=== PATIENT | female | born 1985 | race Caucasian/White ===

== ENCOUNTER 2016-06-08 14:40 | Observation (INO) | payer BC ==
[~2016-06-08] VITALS: Ht 167.6 cm; Wt 83.0 kg
[~2016-06-08 14:40] MED LIST: DIPH25CA84 PO; METH4TAB3 PO; NORE1TAB62; RANI150T7 PO
[2016-06-08 15:00] VITALS: Ht 167.6 cm; Wt 83.0 kg
[2016-06-08 15:11] VITALS: BP 140/95; PULSE 97; RESP 18; TEMP 98; O2SAT 100
[2016-06-08] MEDS ORDERED: BETAMETHASONE 6mg/ml INJECTION IM ONE (15:15)
[2016-06-08] MEDS ORDERED: LIDOCAINE 1% (10mg/ml) 2ml SDV ID PRN (15:15)
[2016-06-08 15:21] VITALS: BP 137/95; PULSE 99
[2016-06-08 15:36] VITALS: BP 128/88; PULSE 101
[2016-06-08 15:51] VITALS: BP 126/87; PULSE 93
[2016-06-08 16:00] LABS: HCT - HEMATOCRIT 31.2 % (36-46); HGB - HEMOGLOBIN 10.2 GM/DL (12-16); MEAN CORPUSCULAR HGB 26.9 UUG (26-34); MEAN CORPUSCULAR HGB CONC(MCHC 32.7 GM/DL (31-37); MEAN CORPUSCULAR VOLUME 82.3 UM3 (80-100); MEAN PLATELET VOLUME 10.6 UM3 (9.4-12.4); RED BLOOD COUNT 3.79 M/MM3 (4.00-5.20); WBC - WHITE BLOOD COUNT 15.4 T/MM3 (4.5-11.0)
[2016-06-08 16:06] VITALS: BP 127/82; PULSE 94
[2016-06-08 16:10] LABS: ALBUMIN 3.1 G/DL (3.5-5.0); ALKALINE PHOSPHATASE 132 U/L (38-126); ALT (SGPT) 17 U/L (9-52); ANION GAP 10 MEQ/L (5-15); AST (SGOT) 17 U/L (14-36); BUN/CREATININE RATIO 22 RATIO (6-26); CALCIUM 8.7 MG/DL (8.4-10.2); CHLORIDE 106 MEQ/L (98-107); CO2 - CARBON DIOXIDE 22 MEQ/L (22-30); CREATININE 0.5 MG/DL (0.7-1.2); GLOMERULAR FILTRATION RATE 144; GLUCOSE 102 MG/DL (65-110); POTASSIUM 3.6 MEQ/L (3.6-5); SODIUM 138 MEQ/L (134-144); TOTAL PROTEIN 6.2 G/DL (6.3-8.2)
[2016-06-08 16:21] VITALS: BP 130/82; PULSE 93
--- NOTE | 2016-06-08 16:40 | DI ---
EXAM: US OB AGE/ GROWTH DATE: 06/08/2016 12:00 AM Encounter: Initial INDICATION: age/growth COMPARISON: None available. TECHNIQUE: Grayscale and color Doppler sonographic images were obtained transabdominally. FINDINGS: There is a single intrauterine gestation is cephalic presentation. There is realtime ultrasound positive cardiac activity with heart rate of 123 bpm. No evidence of placenta previa demonstrated. Amniotic fluid index is 14.4 cm. Biparietal Diameter is 8.47 cm correlating with a gestational age of 34 weeks and 1 days. Head Circumference is 31.30 cm correlating with a gestational age of 35 weeks and 1 days. Abdominal Circumference is 29.65 cm correlating with a gestational age of 33 weeks and 5 days. Femur Length is 6.33 cm correlating with a gestational age of 32 weeks and 6 days. Estimated weight: 2225 grams +/- 325 grams Percentile: 31% Cephalic Index: 0.77 Femur Length/Abdominal Circumference: 21% Head Circumference/Abdominal Circumference: 1.06 The four chamber view of heart, 3 vessel cord, stomach, bladder, kidneys, head, spine, cord insertion, lips/nose, upper extremities, and lower extremities appear within normal limits. EGA by LMP: 34 weeks and 0 days. LMP MP: 07/20/2016 EGA by current US: 34 weeks and 0 days. MP by current US: 07/20/2016 IMPRESSION: Single living intrauterine gestation in cephalic presentation measuring 34 weeks and 0 days by current ultrasound, concordant with dates. .
[2016-06-08 16:53] LABS: BAND NEUTROPHILS # 0.3 T/MM3; EOSINOPHILS # (MANUAL) 0.2 T/MM3 (0-0.5); LYMPHOCYTES # (MANUAL) 4.3 T/MM3 (1-4.8); MONOCYTES # (MANUAL) 0.9 T/MM3 (0-0.8); NEUTROPHILS #(MANUAL)-ABSOLUTE 9.7 T/MM3 (1.8-7.7); TOTAL CELLS COUNTED 100 %
[2016-06-09] MEDS ORDERED: BETAMETHASONE 6mg/ml INJECTION IM ONE (15:15)
== END 2016-06-08 16:50 | disposition home or self-care (01) ==
LOC: MC 14:40
PROVIDERS: ADMIT Obstetrics & Gynecology; ATTEND Obstetrics & Gynecology
DX: O26.893 Other specified pregnancy related conditions, third trimester (principal); R03.0 Elevated blood-pressure reading, without diagnosis of hypertension; O26.23 Pregnancy care for patient with recurrent pregnancy loss, third trimester; O99.343 Other mental disorders complicating pregnancy, third trimester; F32.9 Major depressive disorder, single episode, unspecified; Z3A.34 34 weeks gestation of pregnancy
CPT/HCPCS: 36415; 76815; 80053; 85025; 99218; J0702

== ENCOUNTER 2016-06-21 10:45 | Inpatient (IN) | payer BC ==
[~2016-06-21] VITALS: Ht 167.6 cm; Wt 82.8 kg
[2016-06-21] MEDS ORDERED: ESCI5SOL PO (11:31)
[2016-06-21] MEDS ORDERED: PNV11TAB5 (11:31)
--- NOTE | 2016-06-21 12:40 | DI ---
Indication: ITS.REASON: well being PROCEDURE: US OB BIOPHYS PROFILE W/O NST: Encounter: Initial Age by provided LMP is 35 weeks and 6 days correlating to an MP of July 20, 2016. Comparison: June 08, 2016 PROCEDURE: US OB BIOPHYS PROFILE W/O NST: Technique: Grayscale and color Doppler transabdominal sonographic imaging was performed. Findings: There is a single living intrauterine gestation in cephalic lie. Placenta is posterior without previa. Quantity of amniotic fluid is normal. The cervix is normal length and closed. Amniotic fluid index is normal at 11.9 cm. Largest vertical pocket in the right lower quadrant is 3.8 cm. Umbilical artery Doppler tracing reveals a peak systolic velocity of 55.9 cm/sec, end diastolic velocity of 24.9 cm/sec, resistive index of 0.55, pulsatility index of 0.93, S/D ratio of 2.2, and TAPV of 33.7 cm/sec. heart beats regularly at 132 beats per minute. Biophysical profile score is 6 out of 8 with two points deducted for lack of flexion and extension. Impression: 1. Single living intrauterine gestation with age by provided LMP of 35 weeks and 6 days. This correlates to an MP of July 20, 2016. 2. Biophysical profile score 6 out of 8. .
--- NOTE | 2016-06-21 12:44 | PNPDOC ---
SAFETY SECURITY OFFICER Progress Note Subjective Today's Date 06/21/16 at 35w6d with mild preeclampsia sent over from office for a non-reassuring NST- arrhythmia and frequent short variable decels. She reports good FM today. No BP Sx. Objective General: Alert and Oriented Abdomen: Non-tender, Soft Objective Comments BPP 6/8- no extension, vtx, SONIA 9-12 NST- 140, mod variability, accels, arrhythmia heard, short variable decels to 70s lasting 5-10 sec every 1-5 min (1) 35 weeks gestation of (2) Mild preeclampsia (3) Abnormal heart rate or rhythm Assessment & Plan: Discussed options of daily NSTs vs delivery. Will continue observation for now. COURTNEY MAJANO MD Jun 21, 2016 12:43
--- NOTE | 2016-06-21 16:58 | PNPDOC ---
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 Good FM. Objective Objective Comments The FHT have been unchanged all day with the arrhythmia and decels to 70-80s. (1) 35 weeks gestation of (2) Mild preeclampsia (3) Abnormal heart rate or rhythm Assessment & Plan: Tomorrow is 36 wks. She continues to have the intermittent FHT drops, along with the preeclampsia and BPP 6/8. Due to this change in status today, I'm concerned about the unpredictable risk of IUFD. She had steroids last week. So I'm recommending that we start an induction for her tomorrow. She is in agreement. Q&A. COURTNEY MAJANO MD Jun 21, 2016 16:58
--- OUTSIDE RECORDS SUMMARY | 2016-06-21 17:37 | XMS REPORT | Continuity of Care Document ---
Author Author [facility]RISTOP[facility] Organization [facility] Address Unknown Phone Unavailable Support Name Relationship Address Phone PADMINI HEMALATHA Ortiz MD Caregiver [phone] [place] [address] Unavailable COURTNEY MAJANO MD Caregiver [address] [place] [address] Unavailable COURTNEY MAJANO MD Caregiver [address] [place] [address] Unavailable SHERLY VALADEZ Next Of Kin [address] [place] [address] Insurance Providers Guarantor Zenobia Aaron Address [address] [place] [address] CP Email [email or web address] [facility] Policy Number [id number] Subscriber's Name Mary Aaronian Cadence Relationship 01 Spouse Group Number [id number] Advance Directives Directive Response Recorded Date/Time Ordered Resuscitation Status Full Code 06/08/16 3:09pm Resuscitation Documents on File No 06/08/16 3:00pm DPOA for Healthcare Only No 06/08/16 3:00pm Living Will No 06/08/16 3:00pm Problems Active Problems Medical Problem Onset Date Status Allergic reaction Unknown Acute Allergic reaction Unknown Acute Medications Current Home Medications Medication Dose Units Route Directions Days Qty Instructions Start Date Diphenhydramine Hcl (Benadryl) 25 Mg Capsule 1 Cap Oral Every 4-6 Hours for Allery Symptoms 20 Capsule 02/26/14 Methylprednisolone (Medrol) 4 Mg Tab.ds.pk 4 Mg Oral As Directed for Allery Symptoms 1 02/26/14 Norethindrone Ac-Eth Estradiol (Microgestin 21 1-20 Tablet) 1 Each Tablet Daily 02/26/14 Ranitidine Hcl 150 Mg Tablet 150 Mg Oral Twice A Day for Allery Symptoms 5 Days Take 1 tablet, by mouth, 2 times a day. 02/26/14 Social History Social History Problem Response Recorded Date/Time Onset Date Status Reason for Hospitalization with increased blood pressure 2016 4:45pm Not Applicable Not Applicable Hx Substance Use No 02/26/2014 2:10am Not Applicable Not Applicable Hx Alcohol Use No 02/26/2014 2:10am Not Applicable Not Applicable Tobacco Usage none 02/26/2014 2:58am Not Applicable Not Applicable Query Response Start Date Stop Date Smoking Status Never smoker Hospital Discharge Instructions Instructions: Care Instructions: I was in the hospital because (patient own words): high blood pressure Discharge Diet: Regular Discharge Activity: decreased activity Follow Up Appointments: 06/09/2016 @ 3:15pm for Betamethasone Pending Lab / Results: Follow up w/ provider Expected Signs/Symptoms: see discharge instructions Notify Physician If: see discharge instructions During Business Hours:: Please call the physician's office at After Business Hours:: Please call [phone] and have the telephone switchboard operator page the physician. Pain Management/Treatment: see discharge instructions Wound/Incision Care: N/A Condition at time of discharge: Good Plan of Care Discharge Date 06/08/16 4:50pm Disposition 01 DISCHARGED HOME, SELF-CARE Instructions/Education Provided [facility] Prescriptions See Medication Section Care Plan and Goals See Discharge Instructions Section Functional Status Query Response Date Recorded Ability to complete ADL's impeded by No change June 08, 2016 3:00pm Allergies, Adverse Reactions, Alerts Allergen Type Severity Reaction Status Last Updated No Known Drug Allergies Allergy Unknown Active 11/08/08 Immunizations Query Response on File Recorded Date/Time Hx Influenza Vaccination Y 10/201506/08/16 3:00pm Hx Pneumococcal Vaccination No 06/08/16 3:00pm Hx Influenza Vaccination Y 10/201506/08/16 3:00pm Vital Signs Acute Vital Signs Vital Response Date/Time Temperature (Fahrenheit) 98.0 deg F (96.8 - 99.1) 06/08/2016 3:11pm Temperature (Calculated Celsius) 36.42026 degrees C (36.0 - 37.3) 06/08/2016 3:11pm Pulse Rate (adult) 93 bpm (60 - 100) 06/08/2016 4:21pm Respiratory Rate 18 breaths/min (10 - 20) 06/08/2016 3:11pm O2 Sat by Pulse Oximetry 100 % (90 - 100) 06/08/2016 3:11pm Oxygen Delivery Method Room Air 06/08/2016 3:11pm Blood Pressure 130/82 mm Hg 06/08/2016 4:21pm Blood Pressure Source Automatic Cuff 06/08/2016 4:21pm Height (Feet) 5 feet 06/08/2016 3:00pm Height (Inches) 6.00 inches 06/08/2016 3:00pm Weight (Kilograms) 83.000 kg 06/08/2016 3:00pm Body Mass Index (BMI) 29.5 06/08/2016 3:00pm Results Laboratory Results Test Name Result Units Flags Reference Collection Date/Time Result Date/ Time Comments White Blood Count 15.4 T/MM3 H 4.5-11.0 06/08/2016 3:45pm 06/08/2016 4: 01pm Red Blood Count 3.79 M/MM3 L 4.00-5.20 06/08/2016 3:45pm 06/08/2016 4: 01pm Hemoglobin 10.2 GM/DL L 12-16 06/08/2016 3:45pm 06/08/2016 4:01pm Hematocrit 31.2 % L 36-46 06/08/2016 3:45pm 06/08/2016 4:01pm Mean Corpuscular Volume 82.3 UM3 80-100 06/08/2016 3:45pm 06/08/2016 4: 01pm Mean Corpuscular Hemoglobin 26.9 UUG 26-34 06/08/2016 3:45pm 2016 4:01pm Mean Corpuscular Hemoglobin Concent 32.7 GM/DL 31-37 06/08/2016 3:45pm 06/08/2016 4:01pm RDW Standard Deviation 40.1 FL 36.9-50.2 06/08/2016 3:45pm 06/08/2016 4 :01pm Platelet Count 399 T/MM3 130-400 06/08/2016 3:45pm 06/08/2016 4:01pm Mean Platelet Volume 10.6 UM3 9.4-12.4 06/08/2016 3:45pm 06/08/2016 4: 01pm Neutrophils % (Manual) 63.0 % 33-66 06/08/2016 3:45pm 06/08/2016 4: 53pm Band Neutrophils % 2.0 % 0-6 06/08/2016 3:45pm 06/08/2016 4:53pm Lymphocytes % (Manual) 28.0 % 23-45 06/08/2016 3:45pm 06/08/2016 4: 53pm Monocytes % (Manual) 6.0 % 0-9.0 06/08/2016 3:45pm 06/08/2016 4:53pm Eosinophils % (Manual) 1.0 % 0-4 06/08/2016 3:45pm 06/08/2016 4:53pm Band Neutrophils # 0.3 T/MM3 06/08/2016 3:45pm 06/08/2016 4:53pm Absolute Neutrophils (Manual) 9.7 T/MM3 H 1.8-7.7 06/08/2016 3:45pm 01/2017 4:53pm Lymphocytes # (Manual) 4.3 T/MM3 1-4.8 06/08/2016 3:45pm 06/08/2016 4: 53pm Monocytes # (Manual) 0.9 T/MM3 H 0-0.8 06/08/2016 3:45pm 06/08/2016 4: 53pm Eosinophils # (Manual) 0.2 T/MM3 0-0.5 06/08/2016 3:45pm 06/08/2016 4: 53pm Red Cell Morphology Comment NORMAL 06/08/2016 3:45pm 06/08/2016 4: 53pm Icterus Index < 2 0-7 06/08/2016 3:pm 06/08/2016 4:10pm Chemistry Specimen Hemolysis < 15 0-25 06/08/2016 3:pm 06/08/2016 4 :10pm 0-25: Specimen Exhibited No Hemolysis. Turbidity < 20 0-20 06/08/2016 3:pm 06/08/2016 4:10pm Sodium Level 138 MEQ/L 134-144 06/08/2016 3:45pm 06/08/2016 4:10pm Potassium Level 3.6 MEQ/L 3.6-5 06/08/2016 3:45pm 06/08/2016 4:10pm Chloride Level 106 MEQ/L 98-107 06/08/2016 3:45pm 06/08/2016 4:10pm Carbon Dioxide Level 22 MEQ/L 22-30 06/08/2016 3:45pm 06/08/2016 4: 10pm Anion Gap 10 MEQ/L 5-15 06/08/2016 3:45pm 06/08/2016 4:10pm Blood Urea Nitrogen 11.0 MG/DL 7-17 06/08/2016 3:45pm 06/08/2016 4: 10pm Creatinine 0.5 MG/DL L 0.7-1.2 06/08/2016 3:45pm 06/08/2016 4:10pm BUN/Creatinine Ratio 22 RATIO 6-26 06/08/2016 3:45pm 06/08/2016 4:10pm Glomerular Filtration Rate Calc 144 06/08/2016 3:45pm 06/08/2016 4: 10pm Glucose Level 102 MG/DL 65-110 06/08/2016 3:45pm 06/08/2016 4:10pm Calculated Osmolality 265 MOSM/KG 261-280 06/08/2016 3:45pm 06/08/2016 4:10pm Calcium Level 8.7 MG/DL 8.4-10.2 06/08/2016 3:45pm 06/08/2016 4:10pm Total Bilirubin 0.50 MG/DL 0.20-1.30 06/08/2016 3:pm 06/08/2016 4: 10pm Alkaline Phosphatase 132 U/L H 38-126 06/08/2016 3:45pm 06/08/2016 4: 10pm Total Protein 6.2 G/DL L 6.3-8.2 06/08/2016 3:45pm 06/08/2016 4:10pm Albumin 3.1 G/DL L 3.5-5.0 06/08/2016 3:45pm 06/08/2016 4:10pm Globulin 3.1 G/DL 2.4-3.6 06/08/2016 3:pm 06/08/2016 4:10pm Albumin/Globulin Ratio 1.0 RATIO L 1.1-2.2 06/08/2016 3:45pm 06/08/2016 4:10pm Aspartate Amino Transf (AST/SGOT) 17 U/L 14-36 06/08/2016 3:45pm 2016 4:10pm Alanine Aminotransferase (ALT/SGPT) 17 U/L 9-52 06/08/2016 3:45pm 06/08 4:10pm Name: ZENOBIA AARON Cadence Unit #: [id number] : [id number] Sex: F Admit Date: 06/08/16 Loc / Svc: Discharge Date: DIAGNOSTIC IMAGING REPORT Report #: [id number] [facility] GENIA Lock EXAM: US OB AGE/ GROWTH DATE: 06/08/2016 12:00 AM Encounter: Initial INDICATION: age/growth COMPARISON: None available. TECHNIQUE: Grayscale and color Doppler sonographic images were obtained transabdominally. FINDINGS: There is a single intrauterine gestation is cephalic presentation. There is realtime ultrasound positive cardiac activity with heart rate of 123 bpm. No evidence of placenta previa demonstrated. Amniotic fluid index is 14.4 cm. Biparietal Diameter is 8.47 cm correlating with a gestational age of 34 weeks and 1 days. Head Circumference is 31.30 cm correlating with a gestational age of 35 weeks and 1 days. Abdominal Circumference is 29.65 cm correlating with a gestational age of 33 weeks and 5 days. Femur Length is 6.33 cm correlating with a gestational age of 32 weeks and 6 days. Estimated weight: 2225 grams +/- 325 grams Percentile: 31% Cephalic Index: 0.77 Femur Length/Abdominal Circumference: 21% Head Circumference/Abdominal Circumference: 1.06 The four chamber view of heart, 3 vessel cord, stomach, bladder, kidneys, head, spine, cord insertion, lips/nose, upper extremities, and lower extremities appear within normal limits. EGA by LMP: 34 weeks and 0 days. LMP MP: 07/20/2016 EGA by current US: 34 weeks and 0 days. MP by current US: 07/20/2016 IMPRESSION: Single living intrauterine gestation in cephalic presentation measuring 34 weeks and 0 days by current ultrasound, concordant with dates. . Procedures No known history of procedures. Encounters Encounter Location Arrival/Admit Date Discharge/Depart Date Attending Provider Discharged Inpatient (obs) [facility] 06/08/16 2:40pm 06/08/16 4: 50pm COURTNEY MAJANO MD
[2016-06-21] MEDS ORDERED: ACETAMINOPHEN 500 MG TABLET PO PRN (18:00)
[2016-06-21] MEDS ORDERED: MAG-AL + SIM LIQUID 30 ML UDC PO PRN (18:00)
[2016-06-21] MEDS ORDERED: CALCIUM CARBONATE 500mg Chewable TAB PO PRN (18:00)
[2016-06-21] MEDS ORDERED: LIDOCAINE 1% (10mg/ml) 2ml SDV ID PRN (18:00)
[2016-06-21 18:05] LABS: HCT - HEMATOCRIT 36.2 % (36-46); HGB - HEMOGLOBIN 11.6 GM/DL (12-16); MEAN CORPUSCULAR HGB 26.4 UUG (26-34); MEAN CORPUSCULAR VOLUME 82.3 UM3 (80-100); WBC - WHITE BLOOD COUNT 19.7 T/MM3 (4.5-11.0)
[2016-06-21 18:14] LABS: ALBUMIN 3.7 G/DL (3.5-5.0); ALKALINE PHOSPHATASE 168 U/L (38-126); ALT (SGPT) 23 U/L (9-52); ANION GAP 11 MEQ/L (5-15); AST (SGOT) 21 U/L (14-36); BUN/CREATININE RATIO 32 RATIO (6-26); CALCIUM 9.4 MG/DL (8.4-10.2); CHLORIDE 105 MEQ/L (98-107); CO2 - CARBON DIOXIDE 24 MEQ/L (22-30); CREATININE 0.5 MG/DL (0.7-1.2); GLOMERULAR FILTRATION RATE 144; GLUCOSE 79 MG/DL (65-110); POTASSIUM 3.8 MEQ/L (3.6-5); SODIUM 140 MEQ/L (134-144); TOTAL PROTEIN 7.3 G/DL (6.3-8.2)
[2016-06-21 18:27] VITALS: BP 126/82; PULSE 101; RESP 16; TEMP 98.1; O2SAT 98
[2016-06-22] MEDS: LR 1,000 ML IV PRN ×3 (05:59→15:09)
[2016-06-22] MEDS ORDERED: OXYTOCIN 30 UNIT in D5LR 500 ML SCH (06:00)
[2016-06-22] MEDS ORDERED: D5LR 1,000 ML IV SCH ×2 (06:00→16:35)
[2016-06-22 08:54] LABS: BASOPHILS # (MANUAL) 0.2 T/MM3 (0-0.2); LYMPHOCYTES # (MANUAL) 4.1 T/MM3 (1-4.8); MONOCYTES # (MANUAL) 1.8 T/MM3 (0-0.8); NEUTROPHILS #(MANUAL)-ABSOLUTE 13.6 T/MM3 (1.8-7.7); TOTAL CELLS COUNTED 100 %
[2016-06-22 08:55] LABS: BURR CELLS 1+; HOWELL-JOLLY BODIES 1+; POIKILOCYTOSIS 1+
--- NOTE | 2016-06-22 10:51 | ANESPREOP ---
Anesthesia Record Date and Time DATE: 06/22/16 TIME: 10:50 Proposed Surgical Procedure Allergies: Coded Allergies: amoxicillin (Verified Allergy, Severe, throat and eyes swell, 06/21/16) Ht/Wt/BMI Height: 5 ' 6.00 " Weight: 82.800 kg BMI: kg/m2 Vital Signs Date Time Temp Pulse Resp B/P Pulse Ox O2 Delivery O2 Flow Rate FiO2 06/21/16 18:27 98.1 101 16 126/82 98 Room Air Medications Inpatient Medications Current Medications Medications (Trade) Dose Ordered Sig/Karen Start Time Stop Time Status Last Admin Dose Admin Lidocaine HCl 0.2 mg 0.2 mg PRN PRN 06/21/16 18:00 Lactated Ringer's (Lactated Ringers) 1,000 ml @ 0 mls/hr Q0M PRN 06/21/16 17:50 06/22/16 05:59 0 MLS/HR Acetaminophen (Tylenol Extra Strength) 1-2 TABS = 500-1,000 MG Q4H PRN 06/21/16 18:00 Al Hydroxide/Mg Hydroxide (Maalox) 30 ml Q4H PRN 06/21/16 18:00 Calcium Carbonate 1-2 TABS Q2H PRN 06/21/16 18:00 Dextrose/Lactated Ringer's 1,000 ml @ 0 mls/hr Q0M 06/22/16 06:00 06/22/16 06:19 0 MLS/HR Oxytocin/Dextrose/ Lactated Ringer's (Pitocin/D5lr) 503 ml @ 0 mls/hr Q0M 06/22/16 06:00 06/22/16 06:00 0 MLS/HR Diphenhydramine HCl (Benadryl) 25 Mg Capsule, 1 CAP PO Q4-6H Last Taken: on Unknown Date & Time Escitalopram Oxalate (Lexapro) 10 Mg/10 Ml Solution, 10 ML PO DAILY, (Reported) Last Taken: on 06/21/16 0630 Methylprednisolone (Medrol) 4 Mg Tab.ds.pk, 4 MG PO DIRECTED Last Taken: on Unknown Date & Time Norethindrone AC-Eth Estradiol ( Microgestin 21 1-20 Tablet) 1 Each Tablet, DAILY, (Reported) Last Taken: on Unknown Date & Time Ynb709/FA/Omega3/Dha/Fish Oil ( Gummies) 1 Each Tab.chew, (Reported) Last Taken: on 06/21/16 0630 Ranitidine HCl (Ranitidine HCl) 150 Mg Tablet, 150 MG PO BID Take 1 tablet, by mouth, 2 times a day. Last Taken: on Unknown Date & Time Currently on Beta Deborah: No Medical/Surgical History Anesthesia PMH: Reports: *Hypertension (gestational) Smoking Status: Never smoker Past Surgical History Orthopedic Surgeries: No Abdominal Surgeries: No Genitourinary Surgeries: No Cardiac Surgeries: No Endocrine Surgeries: No Reproductive Surgeries: No Neurological Surgeries: No Ear Surgeries: No Nose Surgeries: No Throat Surgeries: No Other Surgeries: No Anesthesia Adverse Reactions: FOUND none Family Hx of Anesthesia Advers: none Pertinent Findings Laboratory Tests 06/21/16 17:41 EKG Rhythm: Sinus Rhythm Physical Exam Respiratory: Bilat breath sounds equal, Lungs clear Cardiovascular: FOUND Regular rate, rhythm ASA: 2 Plan Anesthesia Plan: Other (LED) Discussion Discussed risks/options/alternatives of anesthesia and questions answered. Patient consents. Nursing pain assessment noted. Attestation Statement Prior to the delivery of any anesthetic medication, I examined the patient, developed the plan, obtained the patient's consent and discussed the risk and benefits of the procedure with the patient/guardian. ANA MARÍA HILL Jun 22, 2016 10:51
--- NOTE | 2016-06-22 13:29 | ANESOB ---
Epidural/ Date/Time DATE: 06/22/16 TIME: 13:28 Preop Diagnosis Procedure: Labor Epidural Plan: Epidural Height: 5 ' 6.00 " Weight: 82.800 kg BMI: kg/m2 P:2 Heart Rate: 130's Medications & Allergies Inpatient Medications Current Medications Medications (Trade) Dose Ordered Sig/Karen Start Time Stop Time Status Last Admin Dose Admin Lidocaine HCl 0.2 mg 0.2 mg PRN PRN 06/21/16 18:00 Lactated Ringer's (Lactated Ringers) 1,000 ml @ 0 mls/hr Q0M PRN 06/21/16 17:50 06/22/16 13:04 0 MLS/HR Acetaminophen (Tylenol Extra Strength) 1-2 TABS = 500-1,000 MG Q4H PRN 06/21/16 18:00 Al Hydroxide/Mg Hydroxide (Maalox) 30 ml Q4H PRN 06/21/16 18:00 Calcium Carbonate 1-2 TABS Q2H PRN 06/21/16 18:00 Dextrose/Lactated Ringer's 1,000 ml @ 0 mls/hr Q0M 06/22/16 06:00 06/22/16 06:19 0 MLS/HR Oxytocin/Dextrose/ Lactated Ringer's (Pitocin/D5lr) 503 ml @ 0 mls/hr Q0M 06/22/16 06:00 06/22/16 06:00 0 MLS/HR Diphenhydramine HCl (Benadryl) 25 Mg Capsule, 1 CAP PO Q4-6H Last Taken: on Unknown Date & Time Escitalopram Oxalate (Lexapro) 10 Mg/10 Ml Solution, 10 ML PO DAILY, (Reported) Last Taken: on 06/21/16629 Methylprednisolone (Medrol) 4 Mg Tab.ds.pk, 4 MG PO DIRECTED Last Taken: on Unknown Date & Time Norethindrone AC-Eth Estradiol ( Microgestin 21 1-20 Tablet) 1 Each Tablet, DAILY, (Reported) Last Taken: on Unknown Date & Time Jcv999/FA/Omega3/Dha/Fish Oil ( Gummies) 1 Each Tab.chew, (Reported) Last Taken: on 06/21/16629 Ranitidine HCl (Ranitidine HCl) 150 Mg Tablet, 150 MG PO BID Take 1 tablet, by mouth, 2 times a day. Last Taken: on Unknown Date & Time Coded Allergies: amoxicillin (Verified Allergy, Severe, throat and eyes swell, 06/21/16) Medical/Surgical History Anesthesia PMH: Reports: *Hypertension (gestational), Smoking Status: Never smoker Does patient use chewing tobac: No Second Hand Exposure: No Substance Use Type: does not use Alcohol Intake: none Anesthesia Adverse Reactions: FOUND none Family Hx of Anesthesia Advers: none Hx of Motion Sickness: No Complications During : No Pertinent Findings Laboratory Tests 06/21/16 17:41 EKG Rhythm: Sinus Rhythm Physical Exam Respiratory: Lungs clear Cardiovascular: Regular rate, rhythm Airway Assessment Mallampati Score: II TMD: 3 Fingerbreadths Neck Extension: Good Overall Assessment: May Be Diff Intubation ASA: 2 Discussion Discussed risks/options/alternatives of anesthesia. Patient consents. Nursing pain assessment noted. Present for Discussion: Present: Spouse Attestation Statement Prior to the delivery of any anesthetic medication, I examined the patient, developed the plan, obtained the patient's consent and discussed the risk and benefits of the procedure with the patient/guardian. If the note happens to be signed after anesthesia start time, it is only due to providing efficient care of the patient and documenting at a time when the computer is available. ИВАН ESPINOSA MANAGER [employer] Jun 22, 2016 13:29
[2016-06-22] MEDS ORDERED: DiphenhydrAMINE 50 MG/ML INJECTION IV PRN ×2 (13:30→17:00)
[2016-06-22] MEDS ORDERED: NALOXONE 0.4mg/ml INJECTION IV PRN ×2 (13:30→17:00)
[2016-06-22] MEDS ORDERED: ROPIVACAINE 1% 200 MG, SUFENTANIL 50 MCG in NORMAL SALINE 80 ML EPI PRN (13:30)
[2016-06-22] MEDS ORDERED: ONDANSETRON 4mg/2ml INJECTION IV PRN ×2 (13:30→17:00)
[2016-06-22] MEDS ORDERED: LIDOCAINE 2%/EPI 1:200,000 20ml SDV ONE (15:38)
[2016-06-22] MEDS ORDERED: LIDOCAINE JELLY 2% 30ml TUBE ONE (15:39)
[2016-06-22] MEDS ORDERED: NOZIN NASAL SWAB NS ONE (15:40)
[2016-06-22] MEDS ORDERED: FAMOTIDINE 20mg IVPB 50 ML IV ONE (15:40)
[2016-06-22] MEDS ORDERED: CEFAZOLIN 2 GM in D5W 50ml 2 GM in D5W 50 ML IV ONE ×2 (15:45)
[2016-06-22] MEDS ORDERED: CITRIC ACID/SODIUM CITRATE 30 ML PO ONE (15:45)
[2016-06-22] MEDS ORDERED: MORPHINE SULFATE PF 5mg/10ml VL (DURAMORPH) ONE (16:06)
[2016-06-22] MEDS ORDERED: ONDANSETRON 4mg/2ml INJECTION ONE (16:09)
[2016-06-22] MEDS ORDERED: OXYTOCIN 30 UNIT in D5LR 500 ML IV SCH (16:35)
[2016-06-22] MEDS ORDERED: MILK OF MAGNESIA 30 ML SUSP PO PRN (16:45)
[2016-06-22] MEDS ORDERED: DiphenhydrAMINE 25 MG CAPSULE PO PRN (16:45)
[2016-06-22] MEDS ORDERED: HYDROCORTISONE 2.5% CREAM 30 GM RECTALLY PRN (16:45)
--- NOTE | 2016-06-22 16:53 | DI ---
Indication: ITS.REASON: STAT C/S PROCEDURE: KUB: Encounter: Initial Comparison: None Findings: Epidural catheter is noted terminating at the L3 level. No retained radiopaque surgical instruments or sponges identified. Nonobstructive nonspecific bowel gas pattern. Bony structures are grossly unremarkable. Impression: No retained radiopaque surgical instruments or sponges seen. .
[2016-06-22] MEDS ORDERED: NALBUPHINE 10mg/ml INJECTION IV PRN (17:00)
--- NOTE | 2016-06-22 17:01 | ANESPO ---
Post-Op Note Date 06/22/16 Time: 17:00 Status Pt Participated in Evaluation: Pt participated in person Vital Signs Date Time Temp Pulse Resp B/P Pulse Ox O2 Delivery O2 Flow Rate FiO2 06/21/16 18:27 98.1 101 16 126/82 98 Room Air Respiratory Function: Airway patent, Regular respirations Cardiovascular Function: Regular pulse Telemetry Pattern: 0 Mental Status: Alert/oriented Pain Level Intensity: 0 Hydration: IV infusing Complications during Recovery None apparent Follow-Up Instructions Instructions Per Surgeon SAM OWEN CRNA Jun 22, 2016 17:01
[2016-06-22] MEDS: SIMETHICONE 80 MG CHEWABLE TABLET PO CHEW SCH ×2 (18:30→22:00)
[2016-06-22] MEDS: IBUPROFEN 800 MG TABLET PO PRN (18:34)
[2016-06-22 21:05] LABS: HCT - HEMATOCRIT 29.4 % (36-46); HGB - HEMOGLOBIN 9.5 GM/DL (12-16); MEAN CORPUSCULAR HGB 26.5 UUG (26-34); MEAN CORPUSCULAR HGB CONC(MCHC 32.3 GM/DL (31-37); MEAN CORPUSCULAR VOLUME 81.9 UM3 (80-100); RED BLOOD COUNT 3.59 M/MM3 (4.00-5.20); WBC - WHITE BLOOD COUNT 21.5 T/MM3 (4.5-11.0)
[2016-06-22 22:00] VITALS: BP 136/80; PULSE 89; RESP 20; TEMP 97.7; O2SAT 99
[2016-06-23] VITALS (13 sets, daily range): BP systolic 130–142; BP diastolic 69–96; PULSE 85–98; RESP 16–20; TEMP 97.3–98.6; O2SAT 97–100
[2016-06-23] MEDS: IBUPROFEN 800 MG TABLET PO PRN ×3 (01:54→19:22)
--- NOTE | 2016-06-23 02:16 | NUR ---
Shift summary: Pt. had section at 1556 due to FHT. Viable male delivered and sent to special care. Pt vital signs are stable. During recovery period, O2 saturation would intermittently drop to upper 80's/ low 90's while pt. was sleeping. 2L O2 via nasal cannula applied to pt. per standing anesthesia orders to keep O2 > 90%. O2 removed after recovery period. Pt. has now maintained O2 saturation in the upper 90's-100 percent while sleeping. D5LR continues to infuse at 100 ml/hr. Jacques catheter patent and draining with adequate output. Pt. had intermittent nausea/vomiting throughout the recovery period and has had water and crackers this shift. Zofran 4 mg given at 2225. Pain controlled with Ibuprofen 800 mg. This RN offered [place], but pt. refused medication. Fundus is firm, midline with small bleeding. Incision dressing is dry and intact. Bilateral thigh-high SCD's and pulse oximeter on. Pericare provided by this RN at 2200. Pt. dangled and stood at bedside to be transferred to wheelchair to see baby in SCN. Pt. is exhausted and has slept most of the evening/night. supportive. Hgb dropped from 11.[address] Vizcaino was notified, no new orders.
--- NOTE | 2016-06-23 02:50 | NUR ---
Chart Check 24 hour chart check completed
--- NOTE | 2016-06-23 07:11 | OPNOTEF ---
DATE 06/22/2016 PREOPERATIVE DIAGNOSES 1. 30-year-old, 5, para 2, at 36 weeks gestational age. 2. distress. 3. Mild preeclampsia. POSTOPERATIVE DIAGNOSES 1. 30-year-old, 5, para 2, at 36 weeks gestational age. 2. distress. 3. Mild preeclampsia. PROCEDURE Primary low transverse section. SURGEON Dr. Sadie Red LICENSING ANALYST Jose Valladares, Informatics Analyst ANESTHESIA Epidural by Ifeanyi Wakefield CRNA COMPLICATIONS None. EBL 900 ml FINDINGS Viable male infant, cephalic position, clear fluids, Apgars 5/7, weight 2178 g, name "Manas." The baby came out clenching his umbilical cord in his fist. Normal-appearing uterus and adnexa. INDICATIONS Josie came to the office yesterday for a blood pressure check and NST due to mild preeclampsia. A new audible arrhythmia was heard as well as recurrent drops in heart rate down to the 70s for 10-20 seconds every 1-5 minutes. She was sent to [facility] for extended monitoring and had a biophysical profile. This was only 6/8. She continued to have the drop in heart rate throughout the entire day, so I was not comfortable sending her home. Due to the abnormal heart tones and abnormal biophysical profile, the decision was made to start Pitocin induction this morning. She is GBS negative. Her membranes were ruptured artificially returning clear fluids. She received an epidural. She progressed very slowly throughout labor and only dilated to 3 cm and -2 station. She started having recurrent severe variable decelerations. Due to being remote from vaginal delivery with distress, she was consented for a section. DESCRIPTION OF PROCEDURE The patient was taken back to the operating room where her epidural was brought up to adequate surgical levels. She already had a Jacques catheter in place. She was prepared and draped in the normal sterile fashion. A Pfannenstiel skin incision was made 2 cm above the symphysis pubis and carried down to the fascia. The fascia was incised in the midline and extended laterally with the Lo scissors. The fascia was elevated and the underlying rectus muscles were dissected off. The peritoneum was entered bluntly and was extended superiorly and inferiorly with good visualization of the bladder. The bladder blade was inserted. A bladder flap was created. The lower uterine segment was very thin from labor. The lower uterine segment was incised in a transverse fashion layer by layer with the scalpel and bluntly extended. The 's head was delivered atraumatically. The nose and mouth were suctioned. The rest of the body was delivered and the baby was found to be clutching his umbilical cord. The cord was clamped and cut. The infant was handed to Dr. Roe who was asked to attend due to distress. The placenta delivered spontaneously. The uterus was exteriorized and cleared of all clots and debris. The uterine incision was closed with running locked O Monocryl. A [id number] of 2-0 chromic was placed on the left edge of the incision for hemostasis. The uterus was returned to the abdomen. The gutters were cleared of all clots and debris. The uterine incision was inspected one final time and still noted to be hemostatic. The peritoneum was closed with running 2-0 Vicryl. Hemostasis was obtained in the rectus muscles with the cautery. The fascia was closed with running 0 Vicryl. Hemostasis was obtained in the subcutaneous tissue with the cautery. The skin was closed with 4-0 Vicryl in a subcuticular manner. Steri-Strips were placed. Sponge, sharp and instrument counts were obtained. However, a postoperative x-ray was done since instruments were not counted preoperatively. At this time baby is in special care nursery due to respiratory distress. TAYO
--- NOTE | 2016-06-23 08:08 | PNPDOC ---
Progress Note PPD1 Rubella: Immune GBS: Negative Blood Type:A pos Subjective 06/23/16 Lochia: Moderate Pain: Controlled Voiding: Voiding, Not Voiding (cobb removed, but unable to void first time to BR.) Nausea and Vomiting: No Nausea/Vomiting Objective Vital Signs Date Time Temp Pulse Resp B/P Pulse Ox O2 Delivery O2 Flow Rate FiO2 06/23/16 08:02 98.1 92 18 142/93 100 Room Air Urine Output: Good General: Alert and Oriented Abdomen: Fundus Firm Incision: Clean/Dry/Intact Laboratory Item Value Date Time White Blood Count 21.5 T/MM3 H 06/22/162048 Hemoglobin 9.5 GM/DL L # 06/22/162048 Platelet Count 331 T/MM3 06/22/162048 Assessment Primary C/S (1) Status post primary low transverse section Plan: Routine Care (2) Mild preeclampsia Plan: Routine Care Plan Routine Care PACO ESPARZA APRN Jun 23, 2016 08:08
[2016-06-23] MEDS: DOCUSATE CALCIUM 240 MG CAPSULE PO SCH (08:23)
[2016-06-23] MEDS: IRON POLYSACCHARIDES COMPLEX 150 MG CAPSULE PO SCH (08:23)
[2016-06-23] MEDS: SIMETHICONE 80 MG CHEWABLE TABLET PO CHEW SCH ×4 (08:24→22:25)
--- NOTE | 2016-06-23 10:30 | NUR ---
CM THIS WORKER MET WITH PT AND FOB AT THIS TIME. THIS WORKER INTRODUCED SELF AND ROLE OF CASE MANAGEMENT. PARENTS REPORTED THAT THEY HAD ALL NECESSARY ITEMS FOR BABY. FAMILY SUPPORT AVAILABLE IN [place]. PARENTS DENIED NEEDS. PARENTS ARE WORKING ON OBTAINING A SMALLER CAR SEAT. PARENTS REPORTED THAT THEY WOULD BE ABLE TO OBTAIN THIS FINANCIALLY. PARENTS DENIED NEEDS AT THIS TIME. PARENTS HAVE FAMILY THAT ARE HELPING WITH THE OTHER CHILDREN WHILE THEY ARE HOSPITALIZED. THIS WORKER PROVIDED CONTACT INFORMATION FOR THIS WORKER AND ENCOURAGED PARENTS TO CONTACT THIS WORKER WITH ANY NEEDS. PT WILL PLAN TO USE [employer] FOR CLAIMS ADJUDICATOR AND DR. HILL FOR FOLLOW UP. NO CONCERNS AT THIS TIME.
[2016-06-23] MEDS: HYDROCODONE/APAP 5 mg/325 mg TABLET PO PRN ×3 (13:54→21:32)
--- NOTE | 2016-06-23 15:00 | NUR ---
Shift summary Patient is getting up and about caring for self and going to [facility] to see baby. IV fluids, Jacques and SCDs have been discontinued. Initially was unable to void but is now voiding without difficult. Is using her own breast pump and pumping q 3 hours during the day. Patient was reluctant to take narcotics because of a history of it causing nausea. Took Ibuprofen and acetaminophin most of the day. This afternoon requested one [place] for increased pain. She tolerated this without nausea and now is requesting a second [place].
[2016-06-24 00:15] VITALS: BP 153/85; PULSE 95; RESP 16; TEMP 98.7; O2SAT 99
--- NOTE | 2016-06-24 01:30 | NUR ---
Chart Check 24 hour chart check completed
--- NOTE | 2016-06-24 01:30 | NUR ---
Shift summary Pt doing well post op c/s. VSS, eating and drinking well. Requesting Ibuprofen and [place] for discomfort, reporting relief with 2 [place] at a time, [facility] to [facility] several times during shift. Voiding without difficulty, reports minimal vaginal bleeding, denies clots. Pt given abdominal binder for support. Will continue to monitor per POC.
[2016-06-24 04:30] VITALS: BP 122/69; PULSE 93; RESP 14; TEMP 98.9; O2SAT 95
[2016-06-24] MEDS: HYDROCODONE/APAP 5 mg/325 mg TABLET PO PRN ×4 (07:02→23:08)
[2016-06-24] MEDS: IBUPROFEN 800 MG TABLET PO PRN ×3 (07:02→23:08)
--- NOTE | 2016-06-24 08:06 | PNPDOC ---
Progress Note PPD2 Rubella: Immune GBS: Negative Blood Type:A pos Subjective 06/24/16 Lochia: Minimal Pain: Controlled Voiding: Voiding Patient in SCN [id number] with baby. Objective Vital Signs Date Time Temp Pulse Resp B/P Pulse Ox O2 Delivery O2 Flow Rate FiO2 06/24/16 04:30 98.9 93 14 122/69 95 Room Air Urine Output: Good General: Alert and Oriented Incision: Clean/Dry/Intact, No Erythema Extremities: Non-tender Assessment (1) Status post primary low transverse section Plan: Routine Care (2) Mild preeclampsia Assessment & Plan: Resolving Plan: Routine Care Plan Expected date of discharge: Jun 25, 2016 COURTNEY MAJANO MD Jun 24, 2016 08:06
[2016-06-24] MEDS: SIMETHICONE 80 MG CHEWABLE TABLET PO CHEW SCH ×4 (09:16→23:07)
[2016-06-24] MEDS: IRON POLYSACCHARIDES COMPLEX 150 MG CAPSULE PO SCH (09:16)
[2016-06-24] MEDS: DOCUSATE CALCIUM 240 MG CAPSULE PO SCH (09:16)
[2016-06-24 09:18] VITALS: BP 150/94; PULSE 96; RESP 16; TEMP 98.2; O2SAT 99
--- NOTE | 2016-06-24 09:40 | NUR ---
HOME MED Verbal order from Dr. Red, pt can continue her Lexapro 10mg daily. Home med verified with pharmacy.
[2016-06-24 13:28] VITALS: BP 148/93; PULSE 92; RESP 16; TEMP 97.8; O2SAT 99
--- NOTE | 2016-06-24 15:34 | NUR ---
SHIFT SUMMARY VSS. FUNDUS FIRM, LIGHT LOCHIA. PAIN CONTROLLED WITH ORAL PAIN MEDS, IBUPROFEN 800MG AND NORCO 5/325MG. LEXAPRO 10MG AND IRON. PATIENT PERFORMS SELF CARES. BABY IN SCN. SPENDING MOST OF HER TIME WITH BABY. ABDOMINAL BINDER. PUMPING AND EBM IN NURSERY FRIDGE FOR BABY.
[2016-06-24 18:46] VITALS: BP 149/96; PULSE 86; RESP 18; TEMP 98.1; O2SAT 100
[2016-06-24 23:38] VITALS: BP 146/77; PULSE 87; RESP 18; TEMP 98.3; O2SAT 96
--- NOTE | 2016-06-25 03:20 | NUR ---
Chart Check 24 hour chart check completed
--- NOTE | 2016-06-25 03:21 | NUR ---
Shift Summary Pt's VS stable. Pt reports minimal lochia and voiding w/o difficulty. Incision open to air, asymptomatic, and steri strips intact. Pt performing self cares. Pain controlled with po pain meds as ordered, Motrin and [place]. Pt up ad reddy in room and MC unit. Pt well in cradle hold ad reddy. Will continue to monitor per plan of care.
[2016-06-25] MEDS: DOCUSATE CALCIUM 240 MG CAPSULE PO SCH (08:46)
[2016-06-25] MEDS: SIMETHICONE 80 MG CHEWABLE TABLET PO CHEW SCH (08:46)
[2016-06-25] MEDS: IBUPROFEN 800 MG TABLET PO PRN (08:47)
[2016-06-25] MEDS: HYDROCODONE/APAP 5 mg/325 mg TABLET PO PRN (08:47)
[2016-06-25] MEDS: IRON POLYSACCHARIDES COMPLEX 150 MG CAPSULE PO SCH (08:49)
--- NOTE | 2016-06-25 08:56 | PNPDOC ---
Progress Note PPD3 Rubella: Immune GBS: Negative Blood Type:A pos Subjective 06/25/16 Lochia: Minimal Pain: Controlled Baby came to her room today. Objective Vital Signs Date Time Temp Pulse Resp B/P Pulse Ox O2 Delivery O2 Flow Rate FiO2 06/24/16 23:38 98.3 87 18 146/77 96 Room Air Urine Output: Good General: Alert and Oriented Incision: Clean/Dry/Intact, No Erythema Mild ecchymosis below incision. Extremities: Non-tender Assessment (1) Status post primary low transverse section Plan: Routine Care, Discharge Home, Continue PNV (2) Mild preeclampsia Assessment & Plan: Resolving. BP check in 1 week. Plan: Routine Care (3) Acute blood loss anemia Plan: Iron COURTNEY MAJANO MD Jun 25, 2016 08:56
[2016-06-25] MEDS ORDERED: IBUP-1547 PO (09:00)
[2016-06-25] MEDS ORDERED: IRON150C5 PO (09:00)
[2016-06-25] MEDS ORDERED: HYDR-4246 PO (09:00)
[2016-06-25] MEDS ORDERED: ESCITALOPRAM 10 MG PO SCH (09:00)
[2016-06-25 09:08] VITALS: BP 138/88; PULSE 90; RESP 18; TEMP 98.4; O2SAT 97
== END 2016-06-25 11:00 | disposition home or self-care (01) | DRG 765 ==
LOC: OBOBS 10:45 → EEVIPCON 10:45 → MC 10:45 → OBOBS 16:59 → MC 17:00 → EDSTATUS 06-29 06:00
PROVIDERS: ADMIT Obstetrics & Gynecology; ATTEND Obstetrics & Gynecology
PROC: 3E033VJ Introduction of Other Hormone into Peripheral Vein, Percutaneous Approach (ICD-10-PCS; 2016-06-22)
PROC: 10907ZC Drainage of Amniotic Fluid, Therapeutic from Products of Conception, Via Natural or Artificial Opening (ICD-10-PCS; 2016-06-22)
PROC: 10D00Z1 Extraction of Products of Conception, Low, Open Approach (ICD-10-PCS; principal; 2016-06-22 15:30)
DX: O76 Abnormality in fetal heart rate and rhythm complicating labor and delivery (principal); D62 Acute posthemorrhagic anemia; O99.02 Anemia complicating childbirth; O14.04 Mild to moderate pre-eclampsia, complicating childbirth; O99.344 Other mental disorders complicating childbirth; F32.9 Major depressive disorder, single episode, unspecified; O36.5930 Maternal care for other known or suspected poor fetal growth, third trimester, not applicable or unspecified; O26.23 Pregnancy care for patient with recurrent pregnancy loss, third trimester; Z3A.35 35 weeks gestation of pregnancy; Z37.0 Single live birth
CPT/HCPCS: 36415; 80053; 82803; 85025; 85027; 86850; 86900; 86901